=== PATIENT | female | born 1995 | race African-American/Black ===

== ENCOUNTER 2018-12-21 17:02 | Emergency (ER) | payer MEDICAID ==
[~2018-12-21] VITALS: Ht 154.9 cm; Wt 61.7 kg
[~2018-12-21 17:02] MED LIST: BENADRYL25 MG ORAL; KEFLEX500 MG ORAL; NKM
[2018-12-21] MEDS ORDERED: NKM (17:16)
--- NOTE | 2018-12-21 17:30 | NUR ---
ED Nurse Note: PT WALKED IN C/O ABD PAIN 10/10, NAUSEA AND VOMITING SINCE 5 AM BUT DENIES DIARRHEA. NO ACTIVE VOMITING THIS TIME, ACTIVE BS NOTED, WILL CONT MONITOR. VSS.
[2018-12-21 17:38] VITALS: BP 111/65
[2018-12-21] MEDS ORDERED: Dicyclomine HCl 10mg/5ml oral soln ORAL ONE (17:45)
[2018-12-21] MEDS ORDERED: Lidocaine 2% Visc 15ml soln ORAL ONE (17:45)
[2018-12-21] MEDS ORDERED: Mylanta II UD 30ml ORAL ONE (17:45)
[2018-12-21] MEDS ORDERED: FAMOTIDINE20 MG ORAL (18:01)
[2018-12-21] MEDS ORDERED: ONDANSETRON ODT4 MG BC (18:01)
--- NOTE | 2018-12-21 18:14 | NUR ---
ED Nurse Note: PT CLEARED TO BE D/C PER ERMD, PT DISCHARGE AND AFTERCARE INSTRUCTION PROVIDED W/ RPESCRIPTION, PT EDUCATION DONE VIA DISCUSSION AND HANDOUT, PT ADVISED TO FOLLOW UP WITH PCP OR RETURN TO ED IF CHANGES IN CONDITION, VSS, AMBULATORY W/ STEADY GAIT, LEFT W/ ALL BELONGINGS.
[2018-12-21 18:15] VITALS: BP 118/75
--- NOTE | 2018-12-21 19:23 | Emergency Room Report ---
History of Present Illness General Chief Complaint: Abdominal Pain Source: Patient Present Illness HPI 23-year-old female presents ED for evaluation. Complaining of nausea and vomiting since this morning. Abdominal pain. Epigastric, burning, 5 out of 10 , nonradiating. History of gastritis. States that she used to take medication but does not have any at this time. Denies fevers or chills. Denies chest pain. Denies any diarrhea. Denies alcohol or drug use. No other aggravating relieving factors. Denies any other associated symptoms Allergies: Coded Allergies: No Known Allergies (Unverified , 04/06/13) Patient History Past Medical History: none, GERD Past Surgical History: none Pertinent Family History: none Social History: Denies: smoking, alcohol use, drug use Last Menstrual Period: 12/04/18 Now: No : 2 Para: 1 Immunizations: UTD Reviewed Nursing Documentation: PMH: Agreed; PSxH: Agreed Nursing Documentation-PMH Past Medical History: No Stated History Review of Systems All Other Systems: negative except mentioned in HPI Physical Exam Vital Signs Date Time Temp Pulse Resp B/P (MAP) Pulse Ox O2 Delivery O2 Flow Rate FiO2 12/21/18 17:11 98.2 114 17 111/65 (80) 96 Room Air Sp02 EP Interpretation: reviewed, normal General Appearance: no apparent distress, alert, GCS 15, non-toxic Head: normocephalic, atraumatic Eyes: bilateral eye normal inspection, bilateral eye PERRL ENT: hearing grossly normal, normal pharynx, no angioedema, normal voice Neck: full range of motion, supple/symm/no masses Respiratory: chest non-tender, lungs clear, normal breath sounds, speaking full sentences Cardiovascular #1: regular rate, rhythm, no edema Cardiovascular #2: 2+ carotid (R), 2+ carotid (L), 2+ radial (R), 2+ radial (L) , 2+ dorsalis pedis (R), 2+ dorsalis pedis (L) Gastrointestinal: normal bowel sounds, soft, non-distended, no guarding, no rebound, tenderness Rectal: deferred Genitourinary: normal inspection, no CVA tenderness Musculoskeletal: back normal, gait/station normal, normal range of motion, non- tender Neurologic: alert, oriented x3, responsive, motor strength/tone normal, sensory intact, speech normal Psychiatric: judgement/insight normal, memory normal, mood/affect normal, no suicidal/homicidal ideation Reflexes: 3+ bicep (R), 3+ bicep (L), 3+ tricep (R), 3+ tricep (L), 3+ knee (R) , 3+ knee (L) Lymphatic: no adenopathy Medical Decision Making Diagnostic Impression: Primary Impression: Gastritis Qualified Codes: K29.00 - Acute gastritis without bleeding ER Course Hospital Course 23 yo F presents to ED c/o abd pain, vomiting differential diagnosis: gastritis, SBO, cholecystits Clinical course Patient placed on stretcher. On environmental monitoring specialist. After initial history, physical exam reveals female in no acute distress. Abdomen soft. No guarding or rebound. remainder of exam unremarkable. Patient declined IV access and IV fluids. Is only requesting oral medications here. Given GI cocktail, Tylenol, Zofran ODT and Pepcid. Safe for discharge for close outpatient follow-up. Will provide referrals. I feel this is a highly complex case requiring extensive working including EKG/ Rhythm strip, Xray/CT/US, Blood/urine lab work, repeat exams while in ED, and administration of strong opiates/narcotics for pain control, admission to hospital or close patient follow up. Diagnosis - gastritis Stable and discharged to home with prescriptions for Zofran, pepcid. Followup with PMD. Return to ED if symptoms recur or worsen Last Vital Signs Date Time Temp Pulse Resp B/P (MAP) Pulse Ox O2 Delivery O2 Flow Rate FiO2 12/21/18 18:15 98.0 108 18 118/75 96 Room Air Status: improved Disposition: HOME, SELF-CARE Condition: Stable Scripts Famotidine (FAMOTIDINE) 20 Mg Tablet 20 MG ORAL DAILY, #30 TAB 0 Refills Prov: Mynor Felder MD 12/21/18 Ondansetron Odt* (ZOFRAN ODT*) 4 Mg Tab.rapdis 4 MG BC EVERY 6 HOURS PRN for Nausea & Vomiting, #20 TAB 0 Refills Prov: Mynor Felder MD 12/21/18 Referrals: NOT CHOSEN IPA/,REFERRING (PCP) [facility] Patient Instructions: Gastritis, Adult, [id number] Mynor Felder MD Dec 21, 2018 19:23
== END 2018-12-21 18:16 | disposition home or self-care (01) ==
LOC: EMR 18:15
DX: K29.00 Acute gastritis without bleeding (principal); K21.9 Gastro-esophageal reflux disease without esophagitis
CPT/HCPCS: 99282